=== PATIENT | female | born 1990 | race African-American/Black ===

== ENCOUNTER 2019-01-27 08:31 | Emergency (ER) | payer BC, OTHER ==
[~2019-01-27] VITALS: Ht 157.5 cm; Wt 77.1 kg
--- NOTE | ~2019-01-27 | EMS ---
[facility] [address] [place] [address] EMS Patient Care Report Name: YARELI OVALLES Room #: DEP PACO Delgado#: [id number] Admission: 01/27/19 ������������������ Attend Phys: Discharge: 01/27/19 ������������������ Date of : [birth year] Report #: [id number] THIS REPORT FOR: //name// Report Transmitted: 01/27/2019 13:52 EMS Care Summary [facility] MED-ACT Incident [id number] @ 01/27/2019 08:02 Incident Location [address] [place] [address] Patient YARELI OVALLES Female, 28 Years 1990 Patient Address [address] [place] [address] Patient History Migraine, Patient Allergies No known allergies, Patient Medications Ibuprofen, Chief Complaint Migraine Disposition Transported No Lights/[place] Dispatch Reason Sick Person Transported To 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 Pt is alert to EMS and tracks EMS upon approach. Pt is being assessed and cared for by FD. Pt's Airway is patent, Breathing appears unlabored and of adequate rate and depth, Circulation shows strong radial [address] [address] EMS Patient Care Report Name: YARELI OVALLES Room #: DEP Danny#: [id number] Admission: 01/27/19 ������������������ Attend Phys: Discharge: 01/27/19 ������������������ Date of : [birth year] Report #: [id number] pulses. Pt reports that she has a history of migraines and that she started to have a migraine and grow dizzy at approximately 0630 hrs this AM. Pt reports that on her drive to work her migraine grew worse and that she pulled over to the side street and called her boss. Pt reports that her boss called 911. 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 Pt rates her migraine as a 7/10. Pt denies any chest pain, SOA, or loss of consciousness. VS assessed, BG via FD. PHCSS is negative. Pt is assisted in pivoting on to cot and is secured semi-fowlers without incident. Cot to unit. Biocom with no orders received. 4/12 lead ECG. Pt is continuously monitored en route. ODT Zofran is administered for pt report of continued mild nausea. VS reassessed. Upon arrival to ER pt is transferred to ER bed via own power without incident. Report to RN. Care transferred. Initial Vitals @08:19P: 72,GCS: 15,SpO2: 100,[place] Suspected: false @08:14P: 79,R: 16,BP: 144/100,GCS: 15,SpO2: 99,Revised Trauma: 12, @08:25P: 73,R: 16,BP: 128/82,GCS: 15,SpO2: 100,Revised Trauma: 12, @08:17P: 79,R: 16,BP: 140/100,GCS: 15,SpO2: 99,Revised Trauma: 12, @08:10P: 75,R: 16,BP: 143/97,Pain: 7/10,GCS: 15,Glucose: 102,SpO2: 100,Revised Trauma: 12, Assessments @08:10MENTAL:Time Oriented,Person Oriented,Place Oriented,Event Oriented,SKIN:HEENT:LUNG SOUNDS:General: Nausea,General: Vomiting,ABDOMEN:General: Nausea,General: Vomiting,PELVIS//GI:EXTREMITIES:Left Arm: Other,Right Arm: Other,Left Leg: No Abnormalities,Right Leg: No Abnormalities,PULSE:NEURO: Impression Migraine Procedures @08:1912-Lead ECGResponse: UnchangedSucceeded@08:25Ondansetron - 4 Milligrams (mg) - OralResponse: Unchanged@08:10ALS AssessmentResponse: UnchangedSucceeded Timeline 08:00,Call Received 08:00,Psap Call 08:02,Dispatched 08:03,En Route 08:08,On Scene 08:09,At Patient 08:10,ALS Assessment,Response: UnchangedSucceeded, 08:10,BP: 143/97 M,PULSE: 75,RR: 16 R,SPO2: 100 Ox,ETCO2: ,B,PAIN: 7,GCS: 15, [address] [place] [address] EMS Patient Care Report Name: CICI OVALLESJUANEdin Room #: DEP Danny#: [id number] Admission: 01/27/19 ������������������ Attend Phys: Discharge: 01/27/19 ������������������ Date of : [birth year] Report #: [id number] 08:14,BP: 144/100 M,PULSE: 79,RR: 16 R,SPO2: 99 Ox,ETCO2: ,BG: ,PAIN: ,GCS: 15, 08:17,BP: 140/100 M,PULSE: 79,RR: 16 R,SPO2: 99 Ox,ETCO2: ,BG: ,PAIN: ,GCS: 15, 08:18,Depart Scene 08:19,12-Lead ECG,Response: UnchangedSucceeded, 08:19,BP: / M,PULSE: 72,RR: R,SPO2: 100 Ox,ETCO2: ,BG: ,PAIN: ,GCS: 15, 08:25,Ondansetron - 4 Milligrams (mg) - Oral,Response: Unchanged 08:25,BP: 128/82 M,PULSE: 73,RR: 16 R,SPO2: 100 Ox,ETCO2: ,BG: ,PAIN: ,GCS: 15, 08:27,At Destination 08:45,Call Closed Disclaimer [email or web address] Copyright 2019 [employer] This EMS Care Summary contains data elements from the applicable legal record (which may be displayed differently). It is designed to provide pertinent information for the following purposes: continuity of care, clinical quality, and state data reporting. The complete legal record is available to ED staff and administrators of the receiving hospital in [employer]s Patient Tracker. All data is provided "as is."
[2019-01-27 10:50] VITALS: BP 110/65
[2019-01-27] MEDS ORDERED: BUTALB-APAP-CA1 EACH PO (10:51)
== END 2019-01-27 11:08 | disposition home or self-care (01) ==
LOC: ER 08:31
DX: G43.909 Migraine, unspecified, not intractable, without status migrainosus (principal); R11.2 Nausea with vomiting, unspecified